=== PATIENT | male | born 1990 | race Caucasian/White ===

== ENCOUNTER 2016-12-01 14:57 | Emergency (ER) | payer SELFPAY ==
[2016-12-01 16:09] VITALS: O2SAT 98
--- NOTE | 2016-12-01 16:58 | ERPHSYRPT ---
- History of Present Illness Time Seen by Provider: 12/01/16 16:52 Source: patient Exam Limitations: no limitations Patient Subjective Stated Complaint: pt states he has been in pain from 2 loose teeth located in the upper and lower front of his mouth. reports it has been hurting for 2 days. reports pain to the right side of his face to the gnosticism and down to the chin. Triage Nursing Assessment: pt is aox3, resps are easy and non labored, skin is pink warm and dry. dental carries noted throughout remaining teeth. no edema noted to the face or neck. Physician History: The patient is a 26-year-old male with poor dentition complaining of 2-3 days of dental pain on the right upper and lower in the front. He's taken Tylenol and ibuprofen without relief. He's had this problem with other teeth in the past. He only has 5 teeth left. Timing/Duration: gradual onset Severity: moderate ENT Location: dental Prearrival Treatment: over the counter meds Modifying Factors: Improves With: nothing Associated Symptoms: tooth pain Allergies/Adverse Reactions: No Known Drug Allergies Allergy (Unverified 12/01/16 16:09) Hx Tetanus, Diphtheria Vaccination/Date Given: Yes Hx Influenza Vaccination/Date Given: No Hx Pneumococcal Vaccination/Date Given: No Immunizations Up to Date: Yes - Review of Systems Constitutional: No Fever, No Chills Eyes: No Symptoms Ears, Nose, & Throat: Other (dental pain) Respiratory: No Cough, No Dyspnea Cardiac: No Chest Pain, No Edema, No Syncope Abdominal/Gastrointestinal: No Abdominal Pain, No Nausea, No Vomiting, No Diarrhea Genitourinary Symptoms: No Dysuria Musculoskeletal: No Back Pain, No Neck Pain Skin: No Rash Neurological: No Dizziness, No Focal Weakness, No Sensory Changes Psychological: No Symptoms Endocrine: No Symptoms Hematologic/Lymphatic: No Symptoms Immunological/Allergic: No Symptoms All Other Systems: Reviewed and Negative - Past Medical History Pertinent Past Medical History: No - Past Surgical History Past Surgical History: No - Social History Smoking Status: Current every day smoker Drug Use: none Patient Lives Alone: No - Nursing Vital Signs Nursing Vital Signs: Initial Vital Signs Temperature 98.0 F 12/01/16 16:01 Pulse Rate 75 12/01/16 16:01 Blood Pressure 113/74 12/01/16 16:01 O2 Sat by Pulse Oximetry 98 12/01/16 16:01 Pain Scale Pain Intensity 8 - Physical Exam General Appearance: mild distress Eye Exam: bilateral eye: PERRL, EOMI Ear Exam: bilateral ear: auricle normal Nasal Exam: normal inspection Throat Exam: dental tenderness (The patient has a past medical history of poor dentition with 5 decaying teeth remaining. He has 2 upper incisors and 3 lower incisors. He states that one of the upper incisors and one of the lower incisors is tender.) Neck Exam: supple Cardiovascular/Respiratory Exam: normal breath sounds, regular rate/rhythm Abdominal Exam: non-tender, soft Neurologic Exam: alert, oriented x 3, sensation nml, No motor deficits Skin Exam: normal color, warm, dry SpO2 Interpretation: normal SpO2: 98 Ordered Tests: Medication Summary Discontinued Medications Generic Name Dose Route Start Last Admin Trade Name Joshuaq PRN Reason Stop Dose Admin Ketorolac Tromethamine 60 mg 12/01/16 17:02 Toradol 30 Mg Injection IM 12/01/16 17:03 STAT ONE - Departure Time of Disposition: 17:00 Departure Disposition: Home Clinical Impression: Pain, dental Condition: Stable Critical Care Time: No Additional Instructions: You have dental pain. You were given Toradol 60 mg by IM injection in the ER. Take penicillin 500 mg 4 times a day for 10 days. Follow-up in the near future with a dentist. Prescriptions: Penicillin V Potassium 500 mg PO QID #40 tablet
[2016-12-01] MEDS ORDERED: TORAdol 30 mg Injection IM ONE (17:02)
[2016-12-01] MEDS ORDERED: TORAdol 30 mg Injection ONE (17:04)
[2016-12-01 17:26] VITALS: BP 140/61; PULSE 80
== END 2016-12-01 17:26 | disposition home or self-care (01) ==
LOC: ED 14:57
DX: K08.89 Other specified disorders of teeth and supporting structures (principal)
CPT/HCPCS: 96372; 99284; J1885